=== PATIENT | male | born 1955 | race Caucasian/White ===

== ENCOUNTER 2016-12-14 10:17 | Emergency (ER) | payer OTHER ==
[~2016-12-14] VITALS: Ht 188 cm; Wt 116.9 kg
[~2016-12-14 10:17] MED LIST: ASPIR 8181 M1 PO; BACTRIM,SEPT1 TABLET PO; KEFLEX500 MG PO; NORVASC5 MG PO; PERCOCET 5/31 TABLET PO; PRAVACHOL40 MG PO; SPIRIVA1 INHALATI IH; TRILIPIX135 MG PO
[2016-12-14 11:49] VITALS: BP 149/77
[2016-12-14] MEDS ORDERED: INDOCIN50 MG PO (11:52)
== END 2016-12-14 12:15 | disposition home or self-care (01) ==
LOC: EME 10:17
PROC: 2W3JX1Z Immobilization of Right Finger using Splint (ICD-10-PCS; principal; 2016-12-14)
DX: S63.610A Unspecified sprain of right index finger, initial encounter (principal); W18.39XA Other fall on same level, initial encounter
CPT/HCPCS: 73130; 99281; 99282

== ENCOUNTER 2017-08-24 06:10 | Emergency (ER) | payer OTHER ==
[~2017-08-24] VITALS: Ht 188 cm; Wt 120.0 kg
[~2017-08-24 06:10] MED LIST changes: +INDOCIN50 MG PO
[2017-08-24 09:01] LABS: BASOPHIL (%) 0.4 % (0-1); EOSINOPHIL (%) 1.4 % (0-5); EOSINOPHIL COUNT 0.1 K/uL (0-0.3); HEMATOCRIT 43.2 % (38.0-50.0); IMMATURE GRANULOCYTE (%) 0.3 % (0.0-0.7); LYMPHOCYTE (%) 23.8 % (15-42); LYMPHOCYTE COUNT 2.3 K/uL (1.0-2.8); MCH 30.7 PG (29.0-34.0); MCHC 34.7 G/DL (30.0-36.0); MCV 88.3 FL (86-99); MONOCYTE (%) 10.1 % (3-12); NEUTROPHIL COUNT 6.1 K/uL (1.8-6.4); PLATELET COUNT 257 K/uL (156-360); RBC DIS.WIDTH-CV 12.5 % (11.8-14.6); RBC DIS.WIDTH-SD 40.5 % (39-53); RED BLOOD COUNT 4.89 M/uL (4.00-5.50); WHITE BLOOD COUNT 9.5 K/uL (4.1-10.2)
[2017-08-24 09:17] LABS: ALBUMIN 4.6 g/dL (3.2-4.8)
[2017-08-24 09:18] LABS: CHLORIDE 108 mEq/L (99-109); SODIUM 139 mEq/L (136-147)
[2017-08-24 09:20] LABS: GLUCOSE 92 mg/dL (70-99); TOTAL PROTEIN 7.6 g/dL (6.4-8.3)
[2017-08-24 09:22] LABS: TOTAL BILIRUBIN 0.5 mg/dL (0.0-1.0)
[2017-08-24 09:23] LABS: ALKALINE PHOSPHATASE 68 IU/L (3-129)
[2017-08-24 09:24] LABS: CREATININE 1.1 mg/dL (0.6-1.3); GFR ESTIMATE (CALCULATED) > 59 mL/min/ (58.99-99999)
[2017-08-24 09:25] LABS: AST (GOT) 16 IU/L (2-34); UREA NITROGEN (BUN) 15 mg/dL (9-23)
[2017-08-24 09:26] LABS: ALT (GPT) 21 IU/L (3-49)
[2017-08-24] MEDS ORDERED: TESSALON200 MG PO (11:49)
[2017-08-24 12:09] VITALS: BP 115/75
[2017-08-24] MEDS ORDERED: ERYTHROMYC1 APPLICAT LEFT EYE (12:11)
== END 2017-08-24 12:09 | disposition home or self-care (01) ==
LOC: EME 06:10
PROVIDERS: Physician Assistant
DX: J06.9 Acute upper respiratory infection, unspecified (principal); H10.9 Unspecified conjunctivitis; F17.200 Nicotine dependence, unspecified, uncomplicated; J44.9 Chronic obstructive pulmonary disease, unspecified; I10 Essential (primary) hypertension; Z79.82 Long term (current) use of aspirin
CPT/HCPCS: 71046; 80053; 85025; 87502; 87651 90; 99281; 99284